=== PATIENT | male | born 1965 | race Caucasian/White ===

== ENCOUNTER 2018-02-17 18:47 | Emergency (ER) | payer BC ==
[~2018-02-17] VITALS: Ht 177.8 cm; Wt 77.1 kg
[~2018-02-17 18:47] MED LIST: BACTRIM DS TAB1 EAC1 ORAL; GENTAMICIN SUL3.5 GM RIGHT EYE
--- NOTE | 2018-02-17 19:01 | NUR ---
ED Nurse Note: Pt came here for 11/25 pain non radiating x 4 days ago. upper left side.
[2018-02-17 19:02] VITALS: BP 127/79
[2018-02-17] MEDS ORDERED: Acetaminophen 500mg (ES) tab ORAL ONE (19:15)
[2018-02-17] MEDS ORDERED: ACETAMINOPHEN-1 EAC1 ORAL (19:22)
[2018-02-17] MEDS ORDERED: AMOXICILLIN500 MG ORAL (19:22)
--- NOTE | 2018-02-17 19:22 | Emergency Room Report ---
History of Present Illness General Chief Complaint: Toothache Source: Patient Present Illness HPI 52-year-old male patient presents the ER complaining of tooth pain for the past 4 days. Denies bleeding or drainage. Denies neck pain. Reports history of tooth implant and affected painful tooth several years ago. Denies fever at home, currently febrile in the ER. States has been taking aspirin for relief of symptoms. Denies chest pain. Denies dysuria. Denies abdominal pain. Denies history of diabetes. Reports history of HIV, states viral load undetectable states CD4 count elevated. Allergies: Coded Allergies: No Known Allergies (Unverified , 06/04/15) Patient History Past Medical History: see triage record Reviewed Nursing Documentation: PMH: Agreed; PSxH: Agreed Nursing Documentation-PMH Past Medical History: No History, Except For Review of Systems All Other Systems: negative except mentioned in HPI Physical Exam Vital Signs Date Time Temp Pulse Resp B/P (MAP) Pulse Ox O2 Delivery O2 Flow Rate FiO2 02/17/18 18:55 101.7 120 22 127/79 98 Room Air Sp02 EP Interpretation: reviewed, normal General Appearance: well appearing, no apparent distress, alert, GCS 15, non- toxic Head: normocephalic, atraumatic Eyes: bilateral eye normal inspection, bilateral eye PERRL, bilateral eye EOMI ENT: hearing grossly normal, normal pharynx, no angioedema, normal voice, uvula midline, moist mucus membranes, other - Left upper gum: Tooth tender to palpation, mild edema, no fluctuance or induration, no erythema Neck: full range of motion, no meningismus Respiratory: lungs clear, normal breath sounds, no rhonchi, no respiratory distress, no accessory muscle use, no wheezing, speaking full sentences Cardiovascular #1: regular rate, rhythm, no edema Neurologic: alert, oriented x3, responsive, motor strength/tone normal, sensory intact Psychiatric: mood/affect normal Skin: no rash Medical Decision Making PA Attestation Dr. Bond is my supervising Physician whom patient management has been discussed with. Diagnostic Impression: Primary Impression: Toothache ER Course Pt. presents to the ED c/o tooth pain. Ddx considered but are not limited to cellulitis, abscess, dental caries, gingivitis. Does not require imaging at this time. Vital signs: are WNL, pt. is febrile. Provided with Tylenol in the ER. ED INTERVENTIONS: Provided with first dose of abx in the ER. Nontoxic appearing, speaking full sentences, no active draining, mild edema, no trismus or vision changes. No signs of abscess, no fluctuance, erythema or edema. Does not require I&D at this time. follow-up with dentist. Will provide abx for infection to cover for possible infection. provided with contact information for dentists. F/u with PCP and dentist for further treatment. Fever likely due to ER precautions given. Fever likely due to tooth infection, advised patient follow-up with dentist and PCP in 1-2 days. DISCHARGE: -Rx provided for Amoxicillin -Rx provided for Tylenol No. 3. Side effects drowsiness, do not take prior to drinking, driving, operating heavy machinery. At this time pt. is stable for d/c to home. Patient is resting comfortably, in no acute distress, nontoxic appearing, talking and smiling without difficulty. Will provide printed patient care instructions and any necessary prescriptions. Care plan and follow up instructions have been discussed with the patient prior to discharge. Patient instructed to follow-up with primary care provider in 1-2 days. Followup with dentist. Patient questions asked and answered. Patient reports understanding and agreement to treatment plan. ER precautions given. Patient instructed to return to ER immediately for any new or worsening of symptoms including but not limited to fever, worsening of pain symptoms, worsening of erythema, red streaking. - Please note that this Emergency Department Report was dictated using [employer] technology software, occasionally this can lead to erroneous entry secondary to interpretation by the dictation equipment. Last Vital Signs Date Time Temp Pulse Resp B/P (MAP) Pulse Ox O2 Delivery O2 Flow Rate FiO2 02/17/18 19:02 101.7 78 22 127/79 98 Room Air Disposition: HOME, SELF-CARE Condition: Stable Scripts Acetaminophen With Codeine (T#3) (TYLENOL #3 TAB*) Y Tab 1 TAB ORAL Q6HR PRN for For Pain, #10 TAB Prov: Angel Pinon P.A. 02/17/18 Amoxicillin* (AMOXIL*) 500 Mg Capsule 500 MG ORAL EVERY 8 HOURS, #20 CAP Prov: Angel Pinon P.A. 02/17/18 Patient Instructions: Dental Pain Additional Instructions: Follow-up with dentist in 2-3 days. Followup with primary care provider in 3 -5 days. Take medications as directed. May cause drowsiness, do not take prior to drinking, driving, operating heavy machinery. Apply ice to affected area. Patient questions asked and answered. ER precautions given, patient instructed to return to ER immediately for any new or worsening of symptoms. Angel Pinon Feb 17, 2018 19:22
[2018-02-17 19:45] VITALS: BP 132/82
--- NOTE | 2018-02-17 19:45 | NUR ---
ED Nurse Note: patient is being discharged after being cleared by ERMD, patient was informed to contact a dentist within 3-5 days, patient is alert and oriented x4, ambulatory with a steady gait, VSS
== END 2018-02-17 19:45 | disposition home or self-care (01) ==
LOC: EMR 19:15
DX: K08.89 Other specified disorders of teeth and supporting structures (principal)
CPT/HCPCS: 99282